=== PATIENT | female | born 1985 | race Caucasian/White ===

== ENCOUNTER 2017-09-23 09:41 | Emergency (ER) | payer SELFPAY ==
--- NOTE | 2017-09-23 10:22 | Emergency Department Record ---
History of Present Illness - General Chief complaint: Bite Insect/other Stated complaint: ? BED BUG BITES/BLOOD IN STOOL Time Seen by Provider: 09/23/17 10:03 Source: Patient Mode of Arrival: Ambulatory Limitations: No limitations - History of Present Illness Initial comments: The patient is here due to having a bad acne outbreak for the last few days. She states the lesions are painful in spots and she also has had a mild ST. Additionally she has had some loose stools the last 2 days and noticed blood when she wiped. There is no reported blood in the stool or in the bowl. The patient has had some crampy AP but that has been a chronic problem for her. She is on OCP's and is also on her menses presently. She did have a neg preg test in the last month. MD complaint: Rash Onset/Timin -: Days(s) Improves with: None Worsens with: None Context: None - Related Data Previous Rx's Medication Instructions Recorded Doxycycline Monohydrate [Mondoxyne 100 mg PO BID #14 capsule 09/23/17 Nl] Doxycycline Monohydrate [Mondoxyne 100 mg PO BID #14 capsule 09/23/17 Nl] Sucralfate [Carafate] 1 gm PO QID #28 tablet 09/23/17 Sucralfate [Carafate] 1 gm PO QID #28 tablet 09/23/17 Allergies Allergy/AdvReac Type Severity Reaction Status Date / Time latex Allergy ITCHING Verified 09/23/17 09:57 ibuprofen [From Motrin] AdvReac NAUSEA AND Verified 04/11/16 15:48 VOMITING Sulfa (Sulfonamide AdvReac NAUSEA AND Verified 04/11/16 15:48 Antibiotics) VOMITING Travel Screening - Travel/Exposure Within Last 30 Days Have you traveled within the last 30 days?: No Past Medical History - SOCIAL HISTORY Smoking Status: Former smoker Alcohol Use: Occasional Drug Use: Occasional Drug Use Detail:: Marijuana - RESPIRATORY Hx Respiratory Disorders: Yes Hx Asthma: Yes - CARDIOVASCULAR Hx Cardio Disorders: No - NEURO Hx Neuro Disorders: No - GI Hx GI Disorders: Yes Hx Reflux: Yes Hx Irritable Bowel: Yes - Hx Genitourinary Disorders: No Comment:: recently diagnosed with endometreosis - ENDOCRINE Hx Endocrine Disorders: No - MUSCULOSKELETAL Hx Musculoskeletal Disorders: No - PSYCH Hx Psych Problems: Yes Hx Anxiety: Yes Hx Depression: Yes - HEMATOLOGY/ONCOLOGY Hx Hematology/Oncology Disorders: No Family Medical History Any Significant Family History?: Yes Family Hx Comment (NOT TO BE USED IN PLACE OF ITEMS BELOW): Mom has Hx Diabetes: Father Course Vital Signs 09/23/17 09:52 Temperature 97.8 F Pulse Rate 80 Respiratory 20 Rate Blood Pressure 139/77 Pulse Ox 99 - Reevaluation(s) Reevaluation #1: The patient is doing very well at this time. She denies any pain or discomfort. I did explain to her the need for the oral Abx and Carafate and the need for F/ U with either her PCP or [facility] for further testing. 09/23/17 11:03 Medical Decision Making - Data Complexity MDM Data: Labs Ordered and/or Reviewed - Lab Data Result diagrams: 09/23/17 10:26 09/23/17 10:26 Disposition Disposition: Discharge Clinical Impression: Rectal pain Acne Qualifiers: Acne type: unspecified acne Qualified Code(s): L70.9 - Acne, unspecified Disposition: Home, Self-Care Condition: (2) Stable Instructions: Antiacne Antibacterial (On the skin) Additional Instructions: Please take the Doxycycline and Carafate as directed. Please see your PCP or [facility] for recheck next week. Return to the ER for any worsening symptoms. Prescriptions: Doxycycline Monohydrate [Mondoxyne Nl] 100 mg PO BID #14 capsule Doxycycline Monohydrate [Mondoxyne Nl] 100 mg PO BID #14 capsule Sucralfate [Carafate] 1 gm PO QID #28 tablet Sucralfate [Carafate] 1 gm PO QID #28 tablet Forms: Patient Portal Access Time of Disposition: 11:06 Quality - Quality Measures Quality Measures: N/A - Blood Pressure Screening View Details: Yes Does Patient Have Any of the Following: No Blood Pressure Classification: Pre-Hypertensive BP Reading Systolic Measurement: 117 Diastolic Measurement: 87 Screening for High Blood Pressure: < Pre-Hypertensive BP, F/U Documented > [ G8950] Pre-Hypertensive Follow-up Interventions: Referral to alternative/primary care provider.
[2017-09-23 10:35] LABS: BASO % 0.2 % (0-6); GRAN % 72.7 % (47-80); HEMATOCRIT 40.5 % (35.0-47.0); HEMOGLOBIN 12.9 gm/dl (11.6-16.0); LYMPH % 18.3 % (16-45); MEAN CELL VOLUME 91.4 fl (81-97); MEAN CORPUSCULAR HEMOGLOBIN 29.1 pg (27-33); MEAN CORPUSCULAR HGB CONC 31.9 g/dl (32-36); MEAN PLATELET VOLUME 10.4 fl (7.4-10.4); MONO % 7.8 % (0-9); PLATELET COUNT 328 K/uL (130-400); RED BLOOD COUNT 4.43 M/uL (3.80-5.40); RED CELL DISTRIBUTION WIDTH 13.7 % (11.5-14.5); WHITE BLOOD COUNT W/O DIFF 9.4 K/uL (4.2-12.2)
[2017-09-23 10:49] LABS: BLOOD UREA NITROGEN 13 mg/dL (6-20); CREATININE 0.9 mg/dL (0.5-0.9); EST GLOMERULAR FILTRATION RATE > 60 mL/min
[2017-09-23 10:50] LABS: TOTAL PROTEIN 7.5 g/dL (6.6-8.7)
[2017-09-23 10:52] LABS: GLUCOSE,RANDOM 110 mg/dL (74-109)
[2017-09-23 10:54] LABS: ALT/SGPT 14 U/L (<33)
[2017-09-23 10:55] LABS: ALB/GLOB RATIO 1.3 (1.1-1.8); ALBUMIN 4.2 g/dL (4.0-5.0); ALKALINE PHOSPHATASE 52 U/L (35-104); AST/SGOT 14 U/L (10.0-35.0)
[2017-09-23] MEDS ORDERED: DOXYCYCLINE HYCLATE 100 MG CAPSULE PO ONE (11:19)
--- NOTE | 2017-09-24 10:38 | Emergency Department Record ---
History of Present Illness - General Chief complaint: Bite Insect/other Stated complaint: ? BED BUG BITES/BLOOD IN STOOL Time Seen by Provider: 09/23/17 10:03 Source: Patient Mode of Arrival: Ambulatory Limitations: No limitations - History of Present Illness MD complaint: Rash Onset/Timin -: Days(s) Improves with: None Worsens with: None Context: None - Related Data Previous Rx's Medication Instructions Recorded Doxycycline Monohydrate [Mondoxyne 100 mg PO BID #14 capsule 09/23/17 Nl] Doxycycline Monohydrate [Mondoxyne 100 mg PO BID #14 capsule 09/23/17 Nl] Sucralfate [Carafate] 1 gm PO QID #28 tablet 09/23/17 Sucralfate [Carafate] 1 gm PO QID #28 tablet 09/23/17 Allergies Allergy/AdvReac Type Severity Reaction Status Date / Time latex Allergy ITCHING Verified 09/23/17 09:57 ibuprofen [From Motrin] AdvReac NAUSEA AND Verified 04/11/16 15:48 VOMITING Sulfa (Sulfonamide AdvReac NAUSEA AND Verified 04/11/16 15:48 Antibiotics) VOMITING Travel Screening - Travel/Exposure Within Last 30 Days Have you traveled within the last 30 days?: No Past Medical History - SOCIAL HISTORY Smoking Status: Former smoker Alcohol Use: Occasional Drug Use: Occasional Drug Use Detail:: Marijuana - RESPIRATORY Hx Respiratory Disorders: Yes Hx Asthma: Yes - CARDIOVASCULAR Hx Cardio Disorders: No - NEURO Hx Neuro Disorders: No - GI Hx GI Disorders: Yes Hx Reflux: Yes Hx Irritable Bowel: Yes - Hx Genitourinary Disorders: No Comment:: recently diagnosed with endometreosis - ENDOCRINE Hx Endocrine Disorders: No - MUSCULOSKELETAL Hx Musculoskeletal Disorders: No - PSYCH Hx Psych Problems: Yes Hx Anxiety: Yes Hx Depression: Yes - HEMATOLOGY/ONCOLOGY Hx Hematology/Oncology Disorders: No Family Medical History Any Significant Family History?: Yes Family Hx Comment (NOT TO BE USED IN PLACE OF ITEMS BELOW): Mom has Hx Diabetes: Father Physical Exam - General General Appearance: Alert, Oriented x3, Cooperative, No acute distress Limitations: No limitations - Head Head exam: Atraumatic, Normocephalic - Eye Eye exam: Normal appearance, PERRL, EOMI. negative: Conjunctival injection - ENT ENT exam: negative: Normal exam (There are multiple minimally superficially infected pimples to each side of the face.) - Neck Neck exam: Normal inspection, Full ROM. negative: Tenderness - Respiratory Respiratory exam: Normal lung sounds bilaterally. negative: Respiratory distress - Cardiovascular Cardiovascular Exam: Regular rate, Normal rhythm, Normal heart sounds - GI/Abdominal GI/Abdominal exam: Soft, Normal bowel sounds. negative: Distended, Guarding, Rebound, Rigid, Tenderness - Extremities Extremities exam: Normal inspection, Full ROM, Normal capillary refill. negative: Tenderness - Neurological Neurological exam: Alert, Normal gait. negative: Abnormal gait, Motor sensory deficit - Psychiatric Psychiatric exam: negative: Agitated, Anxious - Skin Skin exam: negative: Pallor, Petechiae Course Vital Signs 09/23/17 09/23/17 09:52 11:29 Temperature 97.8 F 98.1 F Pulse Rate 80 88 Respiratory 20 18 Rate Blood Pressure 139/77 117/87 Pulse Ox 99 99 Medical Decision Making - Lab Data Result diagrams: 09/23/17 10:26 09/23/17 10:26 Lab Results 09/23/17 09/23/17 Range/Units 10:26 10:26 WBC 9.4 (4.2-12.2) K/uL RBC 4.43 (3.80-5.40) M/uL Hgb 12.9 (11.6-16.0) gm/dl Hct 40.5 (35.0-47.0) % MCV 91.4 (81-97) fl MCH 29.1 (27-33) pg MCHC 31.9 L (32-36) g/dl RDW 13.7 (11.5-14.5) % Plt Count 328 (130-400) K/uL MPV 10.4 (7.4-10.4) fl Gran % 72.7 (47-80) % Lymphocytes % 18.3 (16-45) % Monocytes % 7.8 (0-9) % Eosinophils % 1.0 (0-6) % Basophils % 0.2 (0-6) % Sodium 141 (136-145) mmol/L Potassium 4.2 (3.4-4.5) mmol/L Chloride 104 (98-107) mmol/L Carbon Dioxide 25.0 (22-29) mmol/L Anion Gap 12.0 (7-16) BUN 13 (6-20) mg/dL Creatinine 0.9 (0.5-0.9) mg/dL Estimated GFR > 60 mL/min Random Glucose 110 H (74-109) mg/dL Calcium 9.6 (8.6-10.0) mg/dL Total Bilirubin 0.20 (0.2-1.0) mg/dL AST 14 (10.0-35.0) U/L ALT 14 (<33) U/L Alkaline Phosphatase 52 (35-104) U/L Total Protein 7.5 (6.6-8.7) g/dL Albumin 4.2 (4.0-5.0) g/dL Globulin 3.3 (1.4-4.8) gm/dL Albumin/Globulin Ratio 1.3 (1.1-1.8) Disposition Clinical Impression: Rectal pain Acne Qualifiers: Acne type: unspecified acne Qualified Code(s): L70.9 - Acne, unspecified Disposition: Home, Self-Care Condition: (2) Stable Instructions: Antiacne Antibacterial (On the skin) Additional Instructions: Please take the Doxycycline and Carafate as directed. Please see your PCP or [facility] for recheck next week. Return to the ER for any worsening symptoms. Prescriptions: Doxycycline Monohydrate [Mondoxyne Nl] 100 mg PO BID #14 capsule Doxycycline Monohydrate [Mondoxyne Nl] 100 mg PO BID #14 capsule Sucralfate [Carafate] 1 gm PO QID #28 tablet Sucralfate [Carafate] 1 gm PO QID #28 tablet Forms: Patient Portal Access Quality - Quality Measures Quality Measures: N/A - Blood Pressure Screening View Details: Yes Does Patient Have Any of the Following: No Blood Pressure Classification: Pre-Hypertensive BP Reading Systolic Measurement: 117 Diastolic Measurement: 87 Screening for High Blood Pressure: < Pre-Hypertensive BP, F/U Documented > [ G8950] Pre-Hypertensive Follow-up Interventions: Referral to alternative/primary care provider.
== END 2017-09-23 11:30 | disposition home or self-care (01) ==
LOC: ER 09:41
DX: K62.89 Other specified diseases of anus and rectum (principal); L70.9 Acne, unspecified; J02.9 Acute pharyngitis, unspecified
CPT/HCPCS: 80053; 85025; 99283

== ENCOUNTER 2018-02-07 18:17 | Emergency (ER) | payer MEDICAID ==
--- NOTE | 2018-02-07 18:40 | Emergency Department Record ---
History of Present Illness - General Chief complaint: Head Injury Stated complaint: HIT HEAD 2DAYS,NECK STIFFNESS,BACK SPASM,NAUSEA Time Seen by Provider: 02/07/18 18:33 Source: Patient Mode of Arrival: Ambulatory Limitations: No limitations, Other Travel/Exposure to [place] Within 21 Days of Symptoms: No - History of Present Illness Initial comments: 32 yo female presents to ED for evaluation of headache symptoms and neck stiffness after a hanging blind in her apartment came unattached from the wall and fell onto her head 2 days ago. Patient denies LOC, denies the use of anticoagulation medications, and denies extremity numbness, tingling, or weakness. Patient only reports a history of anemia and stomach ulcers. MD Complaint: Head injury Onset/Timin -: Days(s) Mechanism of Injury: Other Loss of Consciousness: No Previous Trauma to this Area: No Place: Home Radiation: Neck Severity: Moderate Quality: Aching, Other ("stiffness") Consistency: Constant Provoking factors: Other (neck movement) Other Injuries: None Associated Symptoms: Denies other symptoms - Related Data Home Medications Medication Instructions Recorded Confirmed Last Taken Albuterol Sulfate [Ventolin Hfa] 1 - 2 puff IH .EVERY 4-6 HOURS PRN 02/07/1812/22 Unknown Cetirizine HCl [Zyrtec] 10 mg PO DAILY 02/07/18 02/07/18 Unknown Montelukast Sodium [Singulair] 10 mg PO QHS 02/07/18 02/07/18 Unknown Previous Rx's Medication Instructions Recorded Diazepam [Valium] 5 mg PO Q8H PRN #10 tab 02/07/18 Allergies/Adverse reactions: Allergies Allergy/AdvReac Type Severity Reaction Status Date / Time latex Allergy ITCHING Verified 09/23/17 09:57 NSAIDS (Non-Steroidal Allergy pt states Verified 02/07/18 18:36 Anti-Inflamma she can't have due to ulcers ibuprofen [From Motrin] AdvReac NAUSEA AND Verified 04/11/16 15:48 VOMITING Sulfa (Sulfonamide AdvReac NAUSEA AND Verified 04/11/16 15:48 Antibiotics) VOMITING Review of Systems Constitutional: Denies: Chills, Fever, Malaise, Night sweats Eyes: Denies: Eye discharge, Eye pain ENT: Denies: Congestion, Ear pain, Epistaxis Respiratory: Denies: Cough, Dyspnea Cardiovascular: Denies: Chest pain, Dyspnea on exertion Endocrine: Denies: Fatigue, Heat or cold intolerance Gastrointestinal: Denies: Abdominal pain, Nausea, Vomiting Genitourinary: Denies: Incontinence, Retention Musculoskeletal: Reports: Neck pain ("stiffness", pain with ROM). Denies: Arthralgia, Back pain Skin: Denies: Bruising, Change in color, Rash Neurological: Reports: Headache. Denies: Abnormal gait, Confusion, Numbness, Paresthesias, Tingling, Tremors Psychiatric: Denies: Anxiety Hematological/Lymphatic: Denies: Anemia, Blood Clots Past Medical History - SOCIAL HISTORY Smoking Status: Former smoker Drug Use: Occasional Drug Use Detail:: Marijuana - RESPIRATORY Hx Respiratory Disorders: Yes Hx Asthma: Yes - CARDIOVASCULAR Hx Cardio Disorders: No - NEURO Hx Neuro Disorders: No - GI Hx GI Disorders: Yes Hx Reflux: Yes Hx Irritable Bowel: Yes - Hx Genitourinary Disorders: No Comment:: recently diagnosed with endometreosis - ENDOCRINE Hx Endocrine Disorders: No - MUSCULOSKELETAL Hx Musculoskeletal Disorders: No - PSYCH Hx Psych Problems: Yes Hx Anxiety: Yes Hx Depression: Yes - HEMATOLOGY/ONCOLOGY Hx Hematology/Oncology Disorders: No Family Medical History Family Hx Comment (NOT TO BE USED IN PLACE OF ITEMS BELOW): Mom has Hx Diabetes: Father Physical Exam - General General Appearance: Alert, Oriented x3, Cooperative, Mild distress Limitations: No limitations - Head Head exam: Atraumatic, Normocephalic, Normal inspection Head exam detail: negative: Abrasion, Contusion, Alcazar's sign, General tenderness, Hematoma, Laceration - Eye Eye exam: Normal appearance. negative: Conjunctival injection, Periorbital swelling, Periorbital tenderness, Scleral icterus - ENT Ear exam: negative: Auricular hematoma, Auricular trauma Nasal Exam: negative: Active bleeding, Discharge, Dried blood, Foreign body Mouth exam: negative: Drooling, Laceration, Tongue elevation - Neck Neck exam: Tenderness, Other (No midline TTP, but does exhibt mild TTP to the paracervical muscles left, decreased ROM due to pain/spasm). negative: Full ROM , Meningismus - Respiratory Respiratory exam: Normal lung sounds bilaterally. negative: Respiratory distress, Rhonchi, Stridor, Wheezes - Cardiovascular Cardiovascular Exam: Regular rate, Normal rhythm, Normal heart sounds - GI/Abdominal GI/Abdominal exam: Soft. negative: Rebound, Rigid, Tenderness - Rectal Rectal exam: Deferred - exam: Deferred - Extremities Extremities exam: Normal inspection. negative: Calf tenderness, Pedal edema, Tenderness - Back Back exam: Denies: CVA tenderness (R), CVA tenderness (L) - Neurological Neurological exam: Alert, Normal gait, Oriented X3, Other (Health Support Specialist strength 5/5 and symmetric bilaterally, bialteral foot dorsiflexion/plantar flexion 5/5 and symmetric bilaterally). negative: Motor sensory deficit - Psychiatric Psychiatric exam: Normal mood, Suicidal ideation - Skin Skin exam: Normal color. negative: Abrasion Type of lesion: negative: abrasion Course - Reevaluation(s) Reevaluation #1: 02/07/18 18:38 Patient is well appearing on examination with relatively low mechanism for injury No significant risk factors for intracranial injury/bleeding No red flags for cervical fracture or cervical cord injury No midline TTP Patient does however exhibit para-cervical muscle spasm and pain with palpation on examination. Patient is unable to take NSAIDs per her GI specialist, will prescribe Valium as directed with instructions to return for any worsening of her symptoms (i.e. any numbness, tingling, or extremity weakness symptoms). Patient is otherwise well appearing and stable for discharge with symptomatic care as directed. Disposition Disposition: Discharge Clinical Impression: Cervical paraspinal muscle spasm Disposition: Home, Self-Care Condition: (2) Stable Instructions: Cervical Strain (ED) Additional Instructions: Return to ED if your symptoms worsen or if you have any concerns. Valium as directed. Follow-up with your family doctor in 3-5 days for evaluation. Prescriptions: Diazepam [Valium] 5 mg PO Q8H PRN #10 tab PRN Reason: Spasms Forms: Patient Portal Access Time of Disposition: 18:42 Quality - Quality Measures Quality Measures: N/A - Blood Pressure Screening Does Patient Have Any of the Following: No Blood Pressure Classification: Pre-Hypertensive BP Reading Systolic Measurement: 121 Diastolic Measurement: 81 Screening for High Blood Pressure: < Pre-Hypertensive BP, F/U Documented > [ G8950] Pre-Hypertensive Follow-up Interventions: Referral to alternative/primary care provider.
[2018-02-07] MEDS ORDERED: DIAZEPAM 5 MG TABLET PO ONE (19:05)
== END 2018-02-07 20:23 | disposition home or self-care (01) ==
LOC: ER 18:17
DX: G89.11 Acute pain due to trauma (principal); M62.830 Muscle spasm of back; R51 Headache; R11.0 Nausea; M43.6 Torticollis; W22.8XXA Striking against or struck by other objects, initial encounter; Y92.009 Unspecified place in unspecified non-institutional (private) residence as the place of occurrence of the external cause; Z87.891 Personal history of nicotine dependence
CPT/HCPCS: 99283 ×2; J3490

== ENCOUNTER 2019-05-24 18:09 | Emergency (ER) | payer SELFPAY ==
--- NOTE | 2019-05-24 18:28 | Emergency Department Record ---
History of Present Illness - General Chief Complaint: Headache Migraine Stated Complaint: HEADACHE,ADM PAIN,DIZZINESS Time Seen by Provider: 05/24/19 18:27 Source: Patient Mode of Arrival: Ambulatory Limitations: No limitations - History of Present Illness Initial Comments: 34 yo female presents not feeling well for three weeks. Initially her symptoms started with cough, sore throat, congestion, frontal headache and diarrhea. No rash. The cough is nearly gone at this time. The sore throat is still present but better. The nausea and diarrhea have continued. She has 2-6 non bloody loose stools per day. The frontal headache pressure has continued as well. No fever. She was treated at [facility] with a ZPack for bronchitis. She has intermittent abdominal cramps with the diarrhea that start in the upper abdomen and radiate to the lower abdomen. No vision changes. No coordination changes. No shortness of breath, chest pain or syncope. She has not seen her PCP yet. MD Complaint: Headache, Other (sore throat, cough, nausea, diarrhea.) Onset/Timin -: Week(s) (3) Onset Description: Gradual Location: Diffuse Quality: Other (frontal pressure) Improves With: Nothing Worsens With: Light, Movement of head/neck, Noise, Other Associated Symptoms: Nausea, Other (sore throat, cough, diarrhea) Other Symptoms: Other Treatments Prior to Arrival: Other - Related Data Home Medications Medication Instructions Recorded Confirmed Last Taken Azithromycin [Zithromax] 250 mg PO DAILY 05/24/19 05/24/19 05/24/19 Previous Rx's Medication Instructions Recorded Diazepam [Valium] 5 mg PO Q8H PRN #10 tab 02/07/18 Ciprofloxacin HCl [Cipro] 500 mg PO Q12HR #6 tablet 05/24/19 Hyoscyamine Sulfate [Levsin Odt] 0.125 mg PO Q12H PRN #15 tab.subl 05/24/19 Ondansetron [Zofran Odt] 4 mg PO Q8H #15 tab.rapdis 05/24/19 Allergies Allergy/AdvReac Type Severity Reaction Status Date / Time latex Allergy ITCHING Verified 09/23/17 09:57 NSAIDS (Non-Steroidal Allergy pt states Verified 02/07/18 18:36 Anti-Inflamma she can't have due to ulcers ibuprofen [From Motrin] AdvReac NAUSEA AND Verified 04/11/16 15:48 VOMITING Sulfa (Sulfonamide AdvReac NAUSEA AND Verified 04/11/16 15:48 Antibiotics) VOMITING Travel Screening - Travel/Exposure Within Last 30 Days Have you traveled within the last 30 days?: No - Travel/Exposure Within Last Year Have you traveled outside the [place] in the last year?: No - Additonal Travel Details Have you been exposed to anyone with a communicable illness?: Yes Exposure Details:: Communal living with another person whos son is sick- [facility]. - Travel Symptoms Symptom Screening: Headache Review of Systems Constitutional: Reports: Malaise, Weakness. Denies: Chills, Fever, Night sweats Eyes: Denies: Eye discharge, Eye pain, Photophobia, Vision change ENT: Reports: Congestion, Throat pain. Denies: Dental pain, Ear pain, Epistaxis, Hearing loss Respiratory: Reports: Cough. Denies: Dyspnea, Hemoptysis, Stridor, Wheezes Cardiovascular: Denies: Chest pain, Dyspnea on exertion, Edema Endocrine: Reports: Fatigue. Denies: Polydipsia, Polyuria Gastrointestinal: Reports: Abdominal pain, Diarrhea, Nausea. Denies: Constipation, Hematemesis, Hematochezia, Melena Genitourinary: Denies: Dysuria, Frequency, Urgency Musculoskeletal: Denies: Arthralgia, Back pain, Myalgia Skin: Denies: Bruising, Change in color, Rash Neurological: Reports: Headache. Denies: Abnormal gait, Confusion, Numbness, Paresthesias, Tingling, Tremors, Vertigo, Weakness Psychiatric: Denies: Anxiety Hematological/Lymphatic: Denies: Easy bleeding, Easy bruising Past Medical History - SOCIAL HISTORY Smoking Status: Current some day smoker Alcohol Use: Rare Drug Use: Rare Drug Use Detail:: Marijuana - RESPIRATORY Hx Respiratory Disorders: Yes Hx Asthma: Yes Hx Bronchitis: Yes Hx Pneumonia: Yes - CARDIOVASCULAR Hx Cardio Disorders: Yes Hx Hypertension: Yes - NEURO Hx Neuro Disorders: Yes Hx Headaches: Yes Hx Seizures: (unknown) Comment:: TBI - GI Hx GI Disorders: Yes Hx Reflux: Yes Hx Irritable Bowel: Yes - Hx Genitourinary Disorders: Yes Hx Bladder Problem: Yes Comment:: recently diagnosed with endometreosis - ENDOCRINE Hx Endocrine Disorders: No - MUSCULOSKELETAL Hx Musculoskeletal Disorders: No Comment:: bulging discs, pinched nerves in back - PSYCH Hx Psych Problems: Yes Hx Anxiety: Yes Hx Depression: Yes - HEMATOLOGY/ONCOLOGY Hx Hematology/Oncology Disorders: No Family Medical History Any Significant Family History?: No Family Hx Comment (NOT TO BE USED IN PLACE OF ITEMS BELOW): Mom has Hx Diabetes: Father Physical Exam - General General Appearance: Alert, Oriented x3, Cooperative, No acute distress, Other (Sitting up, conversational, well appearing) Limitations: No limitations - Head Head exam: Atraumatic, Normal inspection - Eye Eye exam: Normal appearance, PERRL. negative: Conjunctival injection, Scleral icterus - ENT ENT exam: Normal exam, Mucous membranes moist, Normal orophraynx Ear exam: Normal external inspection Nasal Exam: Normal inspection Mouth exam: Normal external inspection Teeth exam: Normal inspection Throat exam: Normal inspection. negative: Tonsillar erythema, Tonsillomegaly, Tonsillar exudate, R peritonsillar mass, L peritonsillar mass - Neck Neck exam: Normal inspection, Full ROM. negative: Lymphadenopathy, Meningismus, Thyromegaly - Respiratory Respiratory exam: Normal lung sounds bilaterally. negative: Accessory muscle use, Chest wall tenderness, Decreased breath sounds, Prolonged expiratory, Respiratory distress, Rhonchi, Stridor, Wheezes - Cardiovascular Cardiovascular Exam: Regular rate, Normal rhythm, Normal heart sounds - GI/Abdominal GI/Abdominal exam: Soft, Normal bowel sounds. negative: Diminished bowel sounds, Distended, Guarding, Rebound, Rigid, Tenderness - Rectal Rectal exam: Deferred - exam: Deferred - Extremities Extremities exam: Normal inspection. negative: Pedal edema, Tenderness - Back Back exam: Denies: CVA tenderness (R), CVA tenderness (L), Rash noted - Neurological Neurological exam: Alert, Oriented X3 - Psychiatric Psychiatric exam: Normal affect, Normal mood. negative: Agitated, Anxious - Skin Skin exam: Dry, Intact, Normal color, Warm Course Vital Signs 05/24/19 18:14 Temperature 98.2 F Pulse Rate 107 H Respiratory 18 Rate Blood Pressure 137/84 Pulse Ox 100 - Reevaluation(s) Reevaluation #1: 05/24/19 19:23 The patient is well appearing The vitals do not have any significant abnormalities The CBC is normal with minimal increase in monocytes of 9.9% The CMP is normal The UA is normal The [place] is negative 05/24/19 19:37 HCG is negative I discussed the risks and benefits of HCT for a constant 3 week headache. The patient agrees with HCT at this time. 05/24/19 20:53 Stool Studies Rota negative WBC's noted Blood negative Crypto and Giardia negative 05/24/19 20:54 Medical Decision Making - Lab Data Result diagrams: 05/24/19 Unknown 05/24/19 Unknown Disposition Disposition: Discharge Clinical Impression: Nausea, Cough Diarrhea Qualifiers: Diarrhea type: unspecified type Qualified Code(s): R19.7 - Diarrhea, u nspecified Headache Qualifiers: Headache type: unspecified Headache chronicity pattern: unspecified pattern In tractability: intractable Qualified Code(s): R51 - Headache Disposition: Home, Self-Care Condition: (1) Good Instructions: Chronic Diarrhea (ED) Additional Instructions: Call your doctor for the next available follow up appointment Review this ER visit and the tests performed with your family doctor You will have cultures and labs to follow up final results with your doctor Return to the ER for a recheck if worse, any new concerns or questions Take the prescriptions provided as directed Prescriptions: Ciprofloxacin HCl [Cipro] 500 mg PO Q12HR #6 tablet Hyoscyamine Sulfate [Levsin Odt] 0.125 mg PO Q12H PRN #15 tab.subl PRN Reason: Abdominal Pain Ondansetron [Zofran Odt] 4 mg PO Q8H #15 tab.rapdis Referrals: LIDIA THORPE [MEDICAL DOCTOR] - [facility] [Provider Group] Forms: Patient Portal Access Time of Disposition: 21:22 Quality - Quality Measures Quality Measures: N/A - Blood Pressure Screening Does Patient Have Any of the Following: No Blood Pressure Classification: Pre-Hypertensive BP Reading Systolic Measurement: 137 Diastolic Measurement: 84 Screening for High Blood Pressure: < Pre-Hypertensive BP, F/U Documented > [G [id number]] Pre-Hypertensive Follow-up Interventions: Referral to alternative/primary care provider.
[2019-05-24] MEDS ORDERED: ACETAMINOPHEN 1,000 MG/100 ML BTL IVPB ONE (18:36)
[2019-05-24] MEDS ORDERED: 0.9 % SODIUM CHLORIDE 1000ML 1,000 ML IV ONE (18:36)
[2019-05-24] MEDS ORDERED: ONDANSETRON HCL IV 4 MG/2 ML VIAL IVP ONE (18:36)
[2019-05-24 19:13] LABS: ABSOLUTE NEUTROPHIL COUNT 6.15; BASO % 0.2 % (0-6); EOS % 0.8 % (0-6); GRAN % 60.6 % (47-80); HEMATOCRIT 42.5 % (35.0-47.0); HEMOGLOBIN 13.4 gm/dl (11.6-16.0); LYMPH % 28.5 % (16-45); MEAN CELL VOLUME 93.6 fl (81-97); MEAN CORPUSCULAR HEMOGLOBIN 29.5 pg (27-33); MEAN CORPUSCULAR HGB CONC 31.5 g/dl (32-36); MEAN PLATELET VOLUME 10.2 fl (7.4-10.4); MONO % 9.9 % (0-9); PLATELET COUNT 313 K/uL (130-400); RED BLOOD COUNT 4.54 M/uL (3.80-5.40); RED CELL DISTRIBUTION WIDTH 14.5 % (11.5-14.5); URINE APPEARANCE CLEAR; URINE BILIRUBIN NEGATIVE (NEGATIVE); URINE BLOOD NEGATIVE (NEGATIVE); URINE COLOR YELLOW; URINE GLUCOSE (UA) NEGATIVE (NEGATIVE); URINE KETONE NEGATIVE (NEGATIVE); URINE LEUKOCYTE ESTERASE NEGATIVE (NEGATIVE); URINE NITRITE NEGATIVE (NEGATIVE); URINE PROTEIN NEGATIVE (NEGATIVE); URINE UROBILINOGEN 0.2 E.U./dL (0.20 - 1.00); WHITE BLOOD COUNT W/O DIFF 10.1 K/uL (4.2-12.2)
[2019-05-24 19:14] LABS: BILIRUBIN,TOTAL < 0.20 mg/dL (0.2-1.0); BLOOD UREA NITROGEN 8 mg/dL (6-20); CREATININE 0.6 mg/dL (0.5-0.9); EST GLOMERULAR FILTRATION RATE > 60 mL/min
[2019-05-24 19:15] LABS: TOTAL PROTEIN 6.6 g/dL (6.6-8.7)
[2019-05-24 19:17] LABS: GLUCOSE,RANDOM 95 mg/dL (74-109)
[2019-05-24 19:19] LABS: ALB/GLOB RATIO 1.6 (1.1-1.8); ALBUMIN 4.1 g/dL (4.0-5.0); ALT/SGPT 20 U/L (<33); AST/SGOT 17 U/L (10.0-35.0)
[2019-05-24 19:20] LABS: ALKALINE PHOSPHATASE 60 U/L (35-104)
[2019-05-24 19:25] LABS: HCG,QUALITATIVE URINE NEGATIVE (NEGATIVE)
[2019-05-24 20:03] LABS: CRYPTOSPORIDIUM PARVUM ANTIGEN NOT DETECTED (NOT DETECT)
[2019-05-24 20:04] LABS: ROTOVIRUS NOT DETECTED (NOT DETECT)
[2019-05-24 21:12] LABS: MOLECULAR C DIFF TOXIN SCREEN NOT DETECTED (NOT DETECT)
[2019-05-24] MEDS ORDERED: HYDROCODONE/APAP 5/325MG TABLET PO ONE (21:19)
[2019-05-24] MEDS ORDERED: ONDANSETRON 4 MG ODT TABLET SL ONE (21:19)
--- NOTE | 2019-05-26 09:22 | CT SCAN REPORT ---
EXAM: HEAD CT HISTORY: HEADACHE,DIZZINESS. TECHNIQUE: Noncontrast head CT was obtained. FINDINGS: The ventricles and subarachnoid spaces are unremarkable. No mass or mass effect. No intra or extraaxial hemorrhage. No fracture or acute osseous abnormality identified. The visualized orbits are unremarkable. There are small polyps or retention cysts in both maxillary sinuses. The sinuses otherwise appear clear. IMPRESSION: 1. NO MASS, HEMORRHAGE, OR ACUTE INTRACRANIAL PROCESS. 2. SMALL POLYPS OR RETENTIONS CYSTS IN THE INFERIOR MAXILLARY SINUSES BILATERALLY. JOB NUMBER: [id number] [facility]
== END 2019-05-24 21:49 | disposition home or self-care (01) ==
LOC: ER 18:09
DX: R51 Headache (principal); R11.0 Nausea; R05 Cough; J02.9 Acute pharyngitis, unspecified; R19.7 Diarrhea, unspecified; I10 Essential (primary) hypertension; F17.210 Nicotine dependence, cigarettes, uncomplicated
CPT/HCPCS: 99284 ×2; 96365; 96375; 96361; 87329; 85025; 80053; 89055; 87425; 81003; 87880; 81025; 86308; 82272; 87493; 70450; J2405; J7030